=== PATIENT | male | born 1995 | race Caucasian/White ===

== ENCOUNTER 2019-01-12 16:13 | Inpatient (IN) | payer SELFPAY ==
[~2019-01-12 16:13] MED LIST: Dexamethasone 20 MG/5 ML VIAL ONE; Glycopyrrolate 0.2 MG/ML 5 ML SYRINGE ONE; Lidocaine 1% PF 5 ML VIAL ONE; Ondansetron PF 4 MG/2 ML Vial ONE; PROPOFOL 200 MG/20 ML VIAL ONE; Rocuronium Bromide 10 MG/ML (10ML VIAL) ONE; ePHEDrine 50 MG/ML VIAL ONE
[2019-01-12] MEDS ORDERED: Lidocaine 1% (PF) 30 ML VIAL ONE ×2 (16:30→16:41)
[2019-01-12] MEDS ORDERED: Adacel (T-DAP) 0.5 ML SYRINGE ONE (16:34)
--- NOTE | 2019-01-12 16:59 | RAD ---
EXAM: XR Hand Rt 3 View STANDARD PROVIDED CLINICAL HISTORY: Injury to right small finger. Patient cut pinky finger with a saw. COMPARISON: None FINDINGS: There is a fracture involving the distal aspect proximal phalanx right small finger with associated l aceration. Fracture is mildly comminuted and significantly angulated medially which is compatible with patient's recent injury. No additional osseous abnormalities is seen. IMPRESSION: Significant soft tissue defect/laceration involving the proximal aspect of the right small finger wit h angulated fracture involving the proximal phalanx of the right small finger.
[2019-01-12] MEDS ORDERED: Gentamicin Sulfate 300 MG in Sodium Chloride 0.9% 100 ML IVPB ONE ×2 (18:30→20:00)
[2019-01-12] MEDS ORDERED: Bacitracin Zinc Ointment 30 gm TUBE ONE (19:17)
[2019-01-12] MEDS ORDERED: Sodium Chloride 0.9% 30 ML ONE ×2 (19:17→19:43)
[2019-01-12] MEDS ORDERED: Bupivacaine PF 0.5% 30 ML VIAL ONE (19:17)
[2019-01-12] MEDS ORDERED: Fentanyl 100 MCG/2 ML VIAL ONE (20:10)
[2019-01-12] MEDS ORDERED: Midazolam HCl 2 mg/2 ml Vial ONE (22:56)
[2019-01-12] MEDS ORDERED: Milk Of Magnesia 30 ML UDCUP PO PRN (22:58)
[2019-01-12] MEDS ORDERED: HYDROcodone/Acetaminophen 5/325 mg Tablet PO PRN (22:58)
[2019-01-12] MEDS ORDERED: traMADol HCl 50 MG TAB PO PRN (22:58)
[2019-01-12] MEDS ORDERED: Acetaminophen 325 MG TAB PO PRN (22:58)
[2019-01-12] MEDS ORDERED: Morphine 4 MG/ML VIAL SLOW IVP PRN (22:58)
[2019-01-12] MEDS ORDERED: Bisacodyl 10 MG SUPP PR PRN (22:58)
[2019-01-12] MEDS ORDERED: Ondansetron PF 4 MG/2 ML Vial IV PRN (22:58)
[2019-01-12] MEDS ORDERED: Promethazine HCl 25 MG/ML VIAL IM PRN ×2 (22:58→23:11)
[2019-01-12] MEDS ORDERED: Communication Order-Pharmacy FS SCH (23:00)
[2019-01-12] MEDS ORDERED: Ketorolac Tromethamine 30 MG/ML VIAL IVP PRN (23:03)
[2019-01-12] MEDS ORDERED: Meperidine HCl/PF 25 MG/ML VIAL IM PRN (23:03)
[2019-01-12] MEDS ORDERED: PACU-Morphine 4MG/ML VIAL SLOW IVP PRN (23:11)
[2019-01-12] MEDS ORDERED: Ondansetron HCl/PF 4 MG/2 ML Vial IVP PRN (23:11)
[2019-01-12] MEDS ORDERED: HYDROmorphone 2 MG/ML VIAL SLOW IVP PRN (23:11)
[2019-01-12] MEDS ORDERED: Promethazine HCl 25 MG/ML VIAL SLOW IVP PRN (23:11)
[2019-01-12] MEDS ORDERED: Meperidine HCl/PF 25 MG/ML VIAL SLOW IVP PRN (23:11)
[2019-01-12] MEDS ORDERED: Morphine Sulfate 2 MG/ML SYRINGE SLOW IVP PRN (23:11)
[2019-01-13 01:58] VITALS: BMI 24.3
[2019-01-13] MEDS ORDERED: Vancomycin HCl 1 GM in Premix Bag 1 BAG IVPB SCH (05:30)
--- NOTE | 2019-01-13 07:41 | RAD ---
EXAM: XR Finger(s) Rt Min 2 View PROVIDED CLINICAL HISTORY: Injury to right small finger. COMPARISON: Radiographs of the right hand on 01/12/2019. FINDINGS/IMPRESSION: Single intraoperative PA view right small finger is significant for interpretation. 2 pins transfix t he previously noted fracture involving the distal portion of the proximal phalanx right small finger with improved alignment of fracture fragments. There is prominent subcutaneous soft tissue swe lling about the right small finger with evidence of soft tissue defect and laceration. Correlation with intraoperative findings is recommended.
[2019-01-13] MEDS ORDERED: TETANUS AND DIPHTHERIA TOX/PF 0.5 ML DISP.SYRIN IM SCH (09:00)
[2019-01-13] MEDS: Aspirin 81 mg Enteric Coated Tablet PO SCH ×2 (13:56→23:36)
[2019-01-13] MEDS: Vancomycin HCl 1 GM in Premix Bag 1 BAG IVPB SCH (23:37)
[2019-01-14 09:17] VITALS: BP 130/65; TEMP 97.5
[2019-01-14] MEDS: Vancomycin HCl 1 GM in Premix Bag 1 BAG IVPB SCH (10:01)
[2019-01-14] MEDS: Aspirin 81 mg Enteric Coated Tablet PO SCH (10:01)
--- NOTE | 2019-01-14 13:49 | OP ---
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 No previous injury. PREOPERATIVE DIAGNOSES: 1. Open proximal phalanx neck fracture, grade 2 open fracture, right small finger. 2. Extensor tendon laceration with wound. 3. Open proximal phalangeal joint dislocation. 4. Proximal phalanx bone loss. 5. Ulnar digital nerve and artery laceration. 6. Ulnar lateral band laceration. POSTOPERATIVE DIAGNOSES: 1. Open proximal phalanx neck fracture, grade 2 open fracture, right small finger. 2. Extensor tendon laceration with wound. 3. Open proximal phalangeal joint dislocation. 4. Proximal phalanx bone loss. 5. Ulnar digital nerve and artery laceration. 6. Ulnar lateral band laceration. PROCEDURES PERFORMED: At the right small finger; 1. Debridement of material associated with open fracture. 2. Debridement of wound. 3. Debridement of open proximal phalangeal joint. 4. Open reduction, proximal phalanx fracture with K-wires. 5. C-arm supervision. 6. Application of short-arm splint. 7. Extensor tendon zone 4 laceration repair. 8. Tenotomy, lateral band. 9. Microscopic ulnar digital nerve repair. SPECIMEN REMOVED: Multiple particles of soft tissue. ESTIMATED BLOOD LOSS: 50 mL. TOURNIQUET: 75 mL. FINDINGS: Ulnar proximal phalanx neck base with marked bony loss to include collaterals and the entire ulnar condyle volar and direct lateral base and marked bony loss and extensor and lateral band substance periarticular. INDICATIONS FOR PROCEDURE: Saw to the hand at work with open fracture grade 2 and marked instability of fracture with a twisting and possible open dislocation. DESCRIPTION OF PROCEDURE: After successful general endotracheal anesthesia, the limb was prepped and draped. We immediately gave the patient 12 mL of 0.5% Marcaine block, he underwent irrigation and debridement of the fracture because it was very unstable after prepping and draping and time-out. First, we extended the incision proximally on the dorsal side by 1.5 cm and distally over the joint because the joint appeared twisted and indeed there was a dislocation with marked rotation of the condyle where the portion of the fragment of the bone distal to the primary fracture line was only approximately 1 cm in length. It had no collateral ligaments on his ulnar side, so easily rotated the radial side down and it also shortened. We then expanded the dislocation, used a curette to debride the bone along with a small Crile to remove particles under loupe magnification because it was opened in a sawdust environment. We then worked copiously to inspect the joint because there was no collateral we could open it from the ulnar side. The condyles were still intact on the radial side and there was minimal collateral on the radial side attachment. After using the curette, rongeur, Crile, hemostats to debride the bone, De Baca blade as well as a [place] was used as well to debride the bone and the material associated with the open fracture. This was done down to including the bone and all the depth of the tendon which was visualized. The flexor tendon was intact. The radial neurovascular bundle was intact. We then finished irrigation with 5 L of normal saline Pulsavac pressure and the wound was now clean at the beginning of reduction. First, after we finished debriding the open joint, we placed the fracture in its best way as possible because of so much bone loss in the ulnar aspect, leaving about 5 degrees apex radial angulation, but two K-wires held it in appropriate length position for later repair using bone graft to fill in the defect and possible plating. Once this was done, we inspected the tendons and saw there was no further contamination here so we closed the 70% total laceration just proximal to the PIP joint, extensor tendon, cut the wires below the level of the tendon and then noticed that the lateral band was restored. Performed tenotomy of this and could not reach, and finished the repair of the extensor tendon in zone 4 with interrupted 3-0 nylon simple [id number] interrupted pattern. Now the extensor tendon in zone 4 repaired and tenotomy of lateral band, we turned the finger to the dorsal side down and brought the microscope in the field. We performed dissection on palmar side in the area of the ulnar digital nerve and the neurovascular bundle. We could see from this side that the radial digital nerve bundle was intact. There were few particles which were debrided but otherwise the wound is now clean. We then noticed that the ulnar digital nerve ends were found and were opened up by 1.5 mm, so performed approximately 1 mm resection of both the ends. A 9-0 Nurolon was then used to place 3 sutures in the nerves, giving it absolutely perfect . Now, we deflated the tourniquet, cut then wires, we had finished the microscopic digital nerve repair using the 9-0 Nurolon and did not repair the artery. We still had excellent circulation. We could close most of the wound with interrupted 4-0 nylon in a simple pattern. We loosely approximated the worst part of the laceration and then placed bacitracin, Adaptic 4 x 4, multiple one Kerlix. We then placed him in a dorsal block splint out to the level of the nail bed of the small finger. Final radiographs showed reduced joint and reduced fracture with some angulation and this remained so until we placed new bone graft and probably fixation with a plate. The patient left the operating room without evidence of anesthetic or operative complication. Job ID: [id number]
== END 2019-01-14 13:30 | disposition home or self-care (01) | DRG 513 ==
LOC: ERS 16:13 → SDC/OP 18:10 → ONC 01-13 00:08
PROVIDERS: ADMIT Orthopaedic Surgery Hand Surgery; ATTEND Orthopaedic Surgery Hand Surgery
PROC: 0PST04Z Reposition Right Finger Phalanx with Internal Fixation Device, Open Approach (ICD-10-PCS; principal; 2019-01-12)
PROC: 0LQ70ZZ Repair Right Hand Tendon, Open Approach (ICD-10-PCS; 2019-01-12)
PROC: 01Q40ZZ Repair Ulnar Nerve, Open Approach (ICD-10-PCS; 2019-01-12)
DX: S62.616B Displaced fracture of proximal phalanx of right little finger, initial encounter for open fracture (principal); S65.011A Laceration of ulnar artery at wrist and hand level of right arm, initial encounter; W27.0XXA Contact with workbench tool, initial encounter; Y93.89 Activity, other specified; S64.496A Injury of digital nerve of right little finger, initial encounter
CPT/HCPCS: 76000; 90715; J0690; J1100; J1580; J2001; J2250; J2405; J2704; J3010; J3370; J3490; S0020

== ENCOUNTER 2019-03-11 15:07 | Outpatient (CLI) | payer OTHER, SELFPAY ==
[2019-03-11 15:38] LABS: #Basophils 0.1 thou/uL (0.0-0.2); #Eosinphils 0.3 thou/uL (0.0-0.7); #Lymphocytes 2.4 thou/uL (1.20-3.40); #Monocytes 0.6 thou/uL (0.11-0.59); %Basophils 0.7 % (0.0-1.0); %Lymphocytes 28.6 % (21.0-51.0); %Monocytes 7.2 % (0.0-10.0); %Neutrophils 60.6 % (42.0-75.0); Hemoglobin 14.9 g/dL (14.0-18.0); Mean Corpuscular HGB CONC 34.9 g/dL (32.0-36.0); Mean Corpuscular Volume 88.9 fL (78.0-98.0); Mean Platelet Volume 8.5 fL (7.4-10.4); Platelet Count 146 thou/uL (130-400); RBC Distribution Width 11.6 % (11.5-14.5); Red Blood Cell (RBC) Count 4.79 mill/uL (4.70-6.10); White Blood Cell (WBC) Count 8.3 thou/uL (4.8-10.8)
== END 2019-03-11 15:08 | disposition home or self-care (01) ==
LOC: LABBT 15:07
PROVIDERS: ATTEND Orthopaedic Surgery Hand Surgery
DX: Z01.812 Encounter for preprocedural laboratory examination (principal); S62.616B Displaced fracture of proximal phalanx of right little finger, initial encounter for open fracture
CPT/HCPCS: 85025

== ENCOUNTER 2019-03-15 12:56 | Inpatient (IN) | payer OTHER ==
[~2019-03-15 12:56] MED LIST changes: -Glycopyrrolate 0.2 MG/ML 5 ML SYRINGE ONE; +Heparin 1,000 UNITS/ML VIAL ONE; -Rocuronium Bromide 10 MG/ML (10ML VIAL) ONE; -ePHEDrine 50 MG/ML VIAL ONE
--- NOTE | 2019-03-15 15:51 | RAD ---
RADIOGRAPH RIGHT 5TH DIGIT 2 VIEWS: DATE: 03/15/2019. HISTORY: A 24-year-old male for followup of traumatic injury to right 5th digit. COMPARISON: 01/12/2019 intraoperative image in the OR. FINDINGS: Previously demonstrated two K-wires have been removed. Again demonstrated is the comminuted fracture of the head of the 5th proximal phalanx, with intraarticular involvement and displacement. There is ulnar and dorsal angulation, and approximately 10-20% bone width dorsal displacement, of the main di stal fracture fragment. There is a comminuted fracture fragment within the ulnar aspect of the PIP j oint space. There is chronic periosteal elevation along the diaphysis of the proximal phalanx, but t here is no bridging callus involving the fracture itself. IMPRESSION: 1. Late subacute comminuted, displaced, intraarticular fracture at head of right 5th proximal phalan x. No union or callus at the fracture site. 2. Interval removal of Glenna wires. POS: CET
[2019-03-15] MEDS ORDERED: Bacitracin Zinc Ointment 30 gm TUBE ONE (16:10)
[2019-03-15] MEDS ORDERED: Bupivacaine PF 0.5% 30 ML VIAL ONE (16:10)
[2019-03-15] MEDS ORDERED: Sodium Chloride 0.9% 10 ML ONE ×2 (16:14→19:00)
[2019-03-15] MEDS ORDERED: Midazolam HCl 2 mg/2 ml Vial ONE (18:06)
[2019-03-15] MEDS ORDERED: Fentanyl 100 MCG/2 ML VIAL ONE ×2 (18:06→20:43)
[2019-03-15] MEDS ORDERED: Tobramycin Sulfate 1.2 GM VIAL ONE (19:00)
[2019-03-15] MEDS ORDERED: Sodium Chloride 0.9% 20 ML ONE (19:09)
[2019-03-15] MEDS ORDERED: Promethazine HCl 25 MG/ML VIAL IM PRN (20:21)
[2019-03-15] MEDS ORDERED: Promethazine HCl 25 MG/ML VIAL SLOW IVP PRN (20:21)
[2019-03-15] MEDS ORDERED: Ondansetron HCl/PF 4 MG/2 ML Vial IVP PRN (20:21)
[2019-03-15] MEDS ORDERED: Acetaminophen 325 MG TAB PO PRN (20:43)
[2019-03-15] MEDS ORDERED: traMADol HCl 50 MG TAB PO PRN (20:43)
[2019-03-15] MEDS ORDERED: Morphine 4 MG/ML VIAL SLOW IVP PRN (20:43)
[2019-03-15] MEDS ORDERED: Communication Order-Pharmacy FS SCH (20:45)
[2019-03-15] MEDS ORDERED: TETANUS AND DIPHTHERIA TOX/PF 0.5 ML DISP.SYRIN IM SCH (20:45)
[2019-03-15] MEDS ORDERED: Ketorolac Tromethamine 30 MG/ML VIAL ONE (20:47)
--- NOTE | 2019-03-15 20:56 | RAD ---
2 VIEWS RIGHT SMALL FINGER: Date: 03/15/19 HISTORY: Open reduction and internal fixation right small finger after injury with a trim saw. FINDINGS/IMPRESSION: Multiple limited intraoperative fluoroscopic views of the small finger were submitted for interpretat ion. There is better alignment of the proximal phalanx. There is questionable increase in bone in thi s location and a bone graft may have been placed. Surrounding soft tissue swelling is seen. POS: C
[2019-03-15] MEDS ORDERED: Vancomycin HCl 1.5 GM in Sodium Chloride 0.9% 250 ML 300 ML IVPB SCH (21:15)
[2019-03-15 21:48] VITALS: BMI 24.3
[2019-03-15 22:55] LABS: Anion Gap 11 mmol/L (10-20); BUN (Urea Nitrogen) 10 mg/dL (8.9-20.6); Calc. Creatinine Clearance 133 mL/min (70-130); Calcium 9.9 mg/dL (7.8-10.44); Carbon Dioxide 29 mmol/L (22-29); Chloride 103 mmol/L (98-107); Estimated GFR-MDRD 85; Glucose 124 mg/dL (70-105); Potassium 4.3 mmol/L (3.5-5.1); Sodium 139 mmol/L (136-145)
[2019-03-15] MEDS: Vancomycin HCl 1.5 GM in Sodium Chloride 0.9% 250 ML 300 ML IVPB SCH (23:51)
[2019-03-15] MEDS: Aspirin 81 mg Enteric Coated Tablet PO SCH (23:51)
[2019-03-15] MEDS ORDERED: Ketorolac Tromethamine 30 MG/ML VIAL IVP SCH ×2 (23:59)
[2019-03-16 05:39] LABS: #Lymphocytes 0.9 thou/uL (1.20-3.40); #Monocytes 0.2 thou/uL (0.11-0.59); #Neutrophils 9.6 thou/uL (1.40-6.50); %Basophils 0.1 % (0.0-1.0); %Eosinophils 0.1 % (0.0-10.0); %Lymphocytes 8.5 % (21.0-51.0); %Monocytes 2.1 % (0.0-10.0); %Neutrophils 89.2 % (42.0-75.0); Hemoglobin 13.9 g/dL (14.0-18.0); Mean Corpuscular Hemoglobin 31.4 pg (27.0-31.0); Mean Corpuscular Volume 89.6 fL (78.0-98.0); Mean Platelet Volume 8.6 fL (7.4-10.4); Platelet Count 137 thou/uL (130-400); RBC Distribution Width 11.1 % (11.5-14.5); Red Blood Cell (RBC) Count 4.45 mill/uL (4.70-6.10); White Blood Cell (WBC) Count 10.8 thou/uL (4.8-10.8)
[2019-03-16] MEDS: Ketorolac Tromethamine 30 MG/ML VIAL IVP SCH ×3 (06:18→17:50)
[2019-03-16] MEDS: Aspirin 81 mg Enteric Coated Tablet PO SCH ×2 (08:47→19:58)
[2019-03-16] MEDS: Vancomycin HCl 1.5 GM in Sodium Chloride 0.9% 250 ML 300 ML IVPB SCH (11:32)
[2019-03-17] MEDS: Vancomycin HCl 1.5 GM in Sodium Chloride 0.9% 250 ML 300 ML IVPB SCH ×2 (00:07→11:51)
[2019-03-17] MEDS: Ketorolac Tromethamine 30 MG/ML VIAL IVP SCH ×4 (00:07→17:57)
[2019-03-17] MEDS: Aspirin 81 mg Enteric Coated Tablet PO SCH ×2 (08:06→21:42)
[2019-03-17 11:25] LABS: Vancomycin, Trough 9.1 ug/mL
--- NOTE | 2019-03-17 15:27 | SPC ---
PICC placement Ultrasound-guided venous access: (Peripherally inserted central catheter) DATE: 03/17/2019 HISTORY: 24-year-old male with infected fifth digit of right hand requiring long-term IV antibiotics. TECHNIQUE: Catheter caliber: 5 Palau[place] Catheter trim length:44 cm Catheter lumen number:single Catheter tip location:Superior vena cava/right atrial junction Vein accessed:left basilic Signed, informed consent was obtained. A tourniquet was applied at the proximal aspect of the arm. Th e arm was prepped and draped in the usual sterile fashion. A 25-gauge needle was used to applied buffered lidocaine superficially. The vein was punctured with a 21-gauge micropuncture needle under u ltrasound guidance. A 0.018 inch guidewire was advanced through the micropuncture needle and into the vein. Under fluoroscopic guidance, the guidewire was advanced to the superior vena cava. The PICC was flushed and trimmed to the appropriate length. The micropuncture needle was exchanged over the guidewire for a 5 Palauan peel-away dilator sheath. The dilator was exchanged over the guidewire for t he PICC, which was then further advanced under fluoroscopy. The sheath and guidewire were removed. The PICC was flushed again and secured in place at the arm after adjustment of tip position. The dina ent tolerated the procedure well. There was no complication. IMPRESSION: Successful placement of PICC (peripherally inserted central catheter).
[2019-03-17] MEDS ORDERED: Fentanyl 100 MCG/2 ML VIAL ONE (21:24)
[2019-03-17] MEDS ORDERED: Bacitracin Zinc Ointment 30 gm TUBE ONE (21:49)
[2019-03-17] MEDS ORDERED: Bupivacaine PF 0.5% 30 ML VIAL ONE (21:49)
[2019-03-17] MEDS ORDERED: Thrombin 5000 UNITS/5 ML VIAL ONE (21:49)
--- NOTE | 2019-03-17 23:22 | RAD ---
Right Little finger intraoperative fluoroscopy 2 views HISTORY: Fracture. FINDINGS: Intraoperative fluoroscopy was provided for manipulation as performed by Dr. Ovalles. Spot fluoroscopic images show the comminuted, slightly impacted fracture of the proximal phalanx. Fluoroscopy time 3.9 seconds.
[2019-03-18] MEDS: Vancomycin HCl 1.5 GM in Sodium Chloride 0.9% 250 ML 300 ML IVPB SCH ×2 (00:40→11:54)
[2019-03-18] MEDS: Ketorolac Tromethamine 30 MG/ML VIAL IVP SCH ×5 (00:40→23:15)
--- NOTE | 2019-03-18 05:37 | OP ---
DATE OF PROCEDURE: 03/17/2019 PREOPERATIVE DIAGNOSIS: Right small finger wound with prior infection. FINDINGS: Today, no gross infection in bone, joint, skin, or muscle. PROCEDURES PERFORMED: 1. Debridement of bone, right small finger middle phalanx distal third including shaft. 2. C-arm supervision. 3. Antibiotic bead exchange with tobramycin antibiotics inside. INDICATION: The patient looked stable with medications now, 16 hours after the previous debridement. 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 In order to get his wound in a better position, we thought antibiotic beads of a new type should be applied before we close the wounds over a bead spacer intra-articular and let him go home on IV antibiotics. DESCRIPTION OF PROCEDURE: After successful general LMA technique, the limb was prepped and draped. Then, he had a 10 mL of 0.5% Marcaine block and then, removed the sutures, dissected down to the extensor mechanism, opened the two sutures over the previous antibiotic spacer. We then mixed the tobramycin with the antibiotic on the back table, and as they got hard, we did fashion it to the shape of the previous antibiotic bead spacer, which was adequate on frontal and sagittal planes. We placed it and it was adequate. Before this, we debrided the canal of the bone with a curette and we did not find a gross infection. We irrigated the wound and the bone with 3000 mL of normal saline and Pulsavac pressure with antibiotics inside. The patient then had the antibiotic beads formed, antibiotic spacer formed. The cement was placed 3 mm in the canal and then in the joint subarticular below the previously infected chondral surface. The patient then left the operating room with wound closed with 4-0 nylon, the extensor mechanism loosely approximated over the antibiotic bead spacer and had no operative or perioperative complications. Job ID: [id number]
[2019-03-18 06:44] LABS: #Lymphocytes 0.9 thou/uL (1.20-3.40); #Monocytes 0.2 thou/uL (0.11-0.59); #Neutrophils 8.4 thou/uL (1.40-6.50); %Basophils 0.1 % (0.0-1.0); %Eosinophils 0.2 % (0.0-10.0); %Lymphocytes 9.7 % (21.0-51.0); %Monocytes 2.5 % (0.0-10.0); %Neutrophils 87.4 % (42.0-75.0); Hemoglobin 13.7 g/dL (14.0-18.0); Mean Corpuscular Hemoglobin 31.4 pg (27.0-31.0); Mean Corpuscular Volume 89.7 fL (78.0-98.0); Mean Platelet Volume 8.4 fL (7.4-10.4); Platelet Count 131 thou/uL (130-400); RBC Distribution Width 11.3 % (11.5-14.5); Red Blood Cell (RBC) Count 4.36 mill/uL (4.70-6.10); White Blood Cell (WBC) Count 9.6 thou/uL (4.8-10.8)
[2019-03-18] MEDS: Aspirin 81 mg Enteric Coated Tablet PO SCH ×2 (08:35→19:51)
[2019-03-18 11:30] LABS: Vancomycin, Trough 9.1 ug/mL
[2019-03-18] MEDS ORDERED: Vancomycin HCl 1.75 GM in Sodium Chloride 0.9% 500 ML IVPB SCH (12:00)
--- NOTE | 2019-03-18 23:01 | CON ---
DATE OF CONSULTATION: 03/18/2019 REASON FOR CONSULTATION: Osteomyelitis of the right fifth digit. HISTORY OF PRESENT ILLNESS: A 24-year-old, status post sawmill injury to the right 5th finger who had almost amputation of the finger. The initial imaging in December demonstrated fracture in the distal portion of the proximal phalanx of right small digit. The fragments were aligned and fixed by Dr. Ovalles in December and now he was admitted because of inflammatory changes. Dr. Ovalles carried out debridement of bone of the right small finger and antibiotic bead exchange with tobramycin antibiotics placed inside. The patient had a PICC line inserted. Denies headaches, visual symptoms, sore throat, odynophagia, or dysphagia. No cough or productive chest pain. No abdominal pain or diarrhea. No genitourinary symptoms. No other joint symptoms or neurological symptoms. PAST MEDICAL HISTORY: Saw mill injury to the right hand, but no other medical history. SOCIAL HISTORY: Drinks occasionally. Smokes daily. No other drug use. Lives with mother, I believe in [place]. ALLERGIES: NONE. FAMILY HISTORY: Noncontributory. CURRENT MEDICATIONS: Include: 1. Aspirin. 2. Toradol. 3. Demerol. 4. Morphine. 5. Ultram. 6. Vancomycin. PHYSICAL EXAMINATION: VITAL SIGNS: Temperature has been normal. Other vital signs are normal. SKIN: Shows the 5th digit surgical site with bulky dressing, which was not removed. We do not have any photos to review. The patient has a PICC line in left upper extremity. No Woodard catheter, no lymphadenopathy. HEENT: Normal. NECK: Supple. LUNGS: Symmetric. Clear breath sounds. CARDIAC: S1, S2 regular rate. No S3 or S4. ABDOMEN: Soft, not distended or tender. No ascites. No bladder distention. EXTREMITIES: No other joint inflammatory process. NEUROLOGIC: Nonfocal. LABORATORY DATA: White cell count is 10.8 and 9.6, hemoglobin 13.9, platelets 137, 89% neutrophils. Glucose 124, sodium 139. Toxicology with vanc at 9.9. Microbiology with MRSA, vancomycin PINO was 1 and resistant to clindamycin. ASSESSMENT: Osteomyelitis, post injury to the right 5th digit. The patient had incision and drainage and I think he is going to have a bone graft down the road. For now, we will continue daptomycin in the outpatient setting, probably downstairs. We will have clinical case manager assistance, monitor CBC, CRP, CPK, and chemistry on a weekly basis. Followup with clinical response and radiological response and then determine the extension of treatment as needed, probably switch him to oral minocycline plus rifampin at the end of therapy. Job ID: [id number]
[2019-03-18] MEDS: Vancomycin HCl 1.75 GM in Sodium Chloride 0.9% 500 ML IVPB SCH (23:16)
[2019-03-19] MEDS: Ketorolac Tromethamine 30 MG/ML VIAL IVP SCH ×3 (05:34→17:42)
[2019-03-19] MEDS: Aspirin 81 mg Enteric Coated Tablet PO SCH (08:07)
[2019-03-19 08:13] VITALS: BP 155/85; TEMP 97.9
[2019-03-19] MEDS: Vancomycin HCl 1.75 GM in Sodium Chloride 0.9% 500 ML IVPB SCH (11:44)
[2019-03-19 11:55] LABS: Vancomycin, Trough 10.5 ug/mL
== END 2019-03-19 18:08 | disposition home or self-care (01) | DRG 517 ==
LOC: SDC 12:56 → T4-B 21:03
PROVIDERS: ADMIT Orthopaedic Surgery Hand Surgery; ATTEND Orthopaedic Surgery Hand Surgery
PROC: 0PBT0ZZ Excision of Right Finger Phalanx, Open Approach (ICD-10-PCS; principal; 2019-03-17)
PROC: 02HV33Z Insertion of Infusion Device into Superior Vena Cava, Percutaneous Approach (ICD-10-PCS; 2019-03-17)
PROC: B548ZZA Ultrasonography of Superior Vena Cava, Guidance (ICD-10-PCS; 2019-03-17)
PROC: 3E0V329 Introduction of Other Anti-infective into Bones, Percutaneous Approach (ICD-10-PCS; 2019-03-17)
DX: M86.8X4 Other osteomyelitis, hand (principal); F17.200 Nicotine dependence, unspecified, uncomplicated
CPT/HCPCS: 36415; 36569; 76000; 80048; 80202; 85025; 85652; 87070; 87077; 87186; 87205; 88304; 88305; 88311; C1713; C1751; J0690; J1100; J1644; J1885; J2001; J2250; J2405; J2704; J3010; J3260; J3370; J3490; J7050; S0020

== ENCOUNTER 2019-12-07 09:18 | Observation (INO) | payer OTHER, SELFPAY ==
[2019-12-06 12:57] VITALS: BMI 26.9
[2019-12-07] MEDS ORDERED: PROPOFOL 200 MG/20 ML VIAL ONE (10:29)
[2019-12-07] MEDS ORDERED: Dexamethasone 20 MG/5 ML VIAL ONE (10:29)
[2019-12-07] MEDS ORDERED: Ketorolac Tromethamine 30 MG/ML VIAL ONE (10:29)
[2019-12-07] MEDS ORDERED: Ondansetron PF 4 MG/2 ML Vial ONE (10:29)
[2019-12-07] MEDS ORDERED: Lidocaine 1% PF 5 ML VIAL ONE (10:29)
--- NOTE | 2019-12-07 11:58 | RAD ---
Exam:Right hand fifth digit 3 view HISTORY: Incompletely healed fracture COMPARISON: 03/17/2019 FINDINGS: Redemonstration of chronic changes involving the distal phalanx of the fifth digit. Associa malcolm soft tissue swelling. IMPRESSION: Nonhealed fracture involving the distal aspect of the proximal phalanx of the fifth digit . Associated fragmentation and soft tissue swelling/deformity.
[2019-12-07] MEDS ORDERED: Bacitracin Zinc Ointment 30 gm TUBE ONE (12:27)
[2019-12-07] MEDS ORDERED: Bupivacaine PF 0.5% 30 ML VIAL ONE ×2 (12:27→17:23)
[2019-12-07] MEDS ORDERED: Midazolam HCl 2 mg/2 ml Vial ONE (12:35)
[2019-12-07] MEDS ORDERED: Fentanyl 100 MCG/2 ML VIAL ONE (12:35)
--- NOTE | 2019-12-07 17:15 | RAD ---
3 fluoroscopic spot image of the right small finger Indication history traumatic arthritis of the right small digit COMPARISON: Prior exam dated 12/07/2019 FINDINGS: Since comparison examination there is been interval removal of the polymethylmethacrylate s pacer involving the small digit proximal phalanx and PIP joint. There is been interval fusion of the PIP joint with associated plate and screw construct.. The small digit is held in near-anatomic al ignment. Total fluoroscopic time was 59.1 seconds. Total exposure is 1.31 mGy. IMPRESSION: Interval arthrodesis of the small digit PIP joint. Transcribed Date/Time: 12/07/2019 5:17 PM
[2019-12-07] MEDS ORDERED: Thrombin 5000 UNITS/5 ML VIAL ONE (17:32)
[2019-12-07] MEDS ORDERED: Promethazine HCl 25 MG/ML VIAL SLOW IVP PRN (18:06)
[2019-12-07] MEDS ORDERED: Morphine Sulfate 2 MG/ML SYRINGE SLOW IVP PRN (18:06)
[2019-12-07] MEDS ORDERED: Promethazine HCl 25 MG/ML VIAL IM PRN (18:06)
[2019-12-07] MEDS ORDERED: Ondansetron HCl/PF 4 MG/2 ML Vial IVP PRN (18:06)
[2019-12-07] MEDS ORDERED: PACU-Morphine 4MG/ML VIAL SLOW IVP PRN (18:06)
[2019-12-07] MEDS ORDERED: HYDROmorphone 2 MG/ML VIAL SLOW IVP PRN (18:06)
[2019-12-07] MEDS ORDERED: Meperidine HCl/PF 25 MG/ML VIAL SLOW IVP PRN (18:06)
[2019-12-07] MEDS ORDERED: Morphine 4 MG/ML VIAL SLOW IVP PRN (18:13)
[2019-12-07] MEDS ORDERED: Fentanyl 100 MCG/2 ML VIAL SLOW IVP PRN (18:13)
[2019-12-07] MEDS ORDERED: Bisacodyl 10 MG SUPP PR PRN (18:13)
[2019-12-07] MEDS ORDERED: Acetaminophen 325 MG TAB PO PRN (18:13)
[2019-12-07] MEDS ORDERED: Ondansetron PF 4 MG/2 ML Vial SLOW IVP PRN (18:13)
[2019-12-07] MEDS ORDERED: Milk Of Magnesia 30 ML UDCUP PO PRN (18:13)
[2019-12-07] MEDS ORDERED: Meperidine HCl/PF 25 MG/ML VIAL IM PRN (18:15)
[2019-12-07] MEDS: traMADol HCl 50 MG TAB PO PRN (20:23)
[2019-12-07] MEDS: Aspirin 81 mg Enteric Coated Tablet PO SCH (20:24)
[2019-12-07] MEDS: Sodium Chloride 0.9% 100 ML IV SCH (20:48)
[2019-12-07] MEDS ORDERED: TETANUS AND DIPHTHERIA TOX/PF 0.5 ML DISP.SYRIN IM SCH (21:00)
[2019-12-07] MEDS: Vancomycin 1.5 GRAM/300 ML BAG 1.5 GM in Premix Bag 1 BAG IVPB SCH (21:42)
[2019-12-07] MEDS: Sodium Chloride 0.9% 1,000 ML IV SCH (21:42)
[2019-12-08] MEDS ORDERED: Vancomycin 1 GM in Premix Bag 1 BAG IVPB SCH (01:00)
[2019-12-08] MEDS: HYDROcodone/Acetaminophen 5/325 mg Tablet PO PRN ×3 (01:24→14:24)
[2019-12-08] MEDS: traMADol HCl 50 MG TAB PO PRN (03:49)
[2019-12-08] MEDS: Vancomycin 1.5 GRAM/300 ML BAG 1.5 GM in Premix Bag 1 BAG IVPB SCH ×2 (05:09→13:43)
[2019-12-08] MEDS: Sodium Chloride 0.9% 1,000 ML IV SCH (06:01)
[2019-12-08] MEDS: Aspirin 81 mg Enteric Coated Tablet PO SCH (07:54)
[2019-12-08 12:34] LABS: Vancomycin, Trough 13.3 ug/mL
[2019-12-08 16:01] VITALS: BP 115/75; TEMP 99
--- NOTE | 2019-12-08 16:05 | OP ---
DATE OF PROCEDURE: 12/07/2019 PREOPERATIVE DIAGNOSES: 1. Nonunion with bone defect, neck of the proximal phalanx fracture. 2. Posttraumatic osteoarthritis with chondral loss, proximal interphalangeal joint, right small finger. POSTOPERATIVE DIAGNOSES: 1. Nonunion with bone defect, neck of the proximal phalanx fracture. 2. Posttraumatic osteoarthritis with chondral loss, proximal interphalangeal joint, right small finger. OTHER FINDINGS: 1. Tendon adhesions, marked extensor tendon skin and extensor tendon bone in the region of the nonunion. 2. Antibiotic beads inside still in place, need to be removed. PROCEDURES PERFORMED: 1. Removal of antibiotic beads implant, intra-articular proximal phalanx. 2. C-arm supervision. 3. Tenolysis of extensor tendon, proximal phalanx, interphalangeal joint and proximal phalangeal joint. 4. Debridement of material associated with open fracture. 5. Open treatment with iliac crest bone graft harvested almost a 2 cm segment, approximately 1 cm deep and 15 mm wide tricortical, so we did open treatment with this iliac bone graft described above after harvesting with internal fixation using [employer]ynthes 1.5 Modular handset plate and screws. SPECIMENS: Yes, white blood cell counts sent initially, which was less than 0 per high-power field. Final bone loss 1 cm long and 4 mm wide. INDICATIONS FOR PROCEDURE: The patient again had an open injury at work, led to internal fixation and debridement for grade 2 fracture and then went on to have infection, which was osteomyelitis. He required debridement of the bone. Once this was done, the chondral surface was so thin and it did not survive, but fragmented. We had stabilized this area after multiple debridements and he had IV antibiotics. DESCRIPTION OF PROCEDURE: After successful general endotracheal anesthesia, his limb was prepped and draped. The patient had time-out done appropriately. We gave him 15 mL of 0.5% Marcaine metacarpophalangeal block level and 10 at the level of the iliac crest wing. We then carried the incision through skin and subcutaneous tissue, and made a midline incision in the extensor mechanism, slightly more ulnar than radial between P3 and P2. Here, we then found there was extensive adhesion beginning at the PIP joint distally to the proximal to the MP joint. We released the extensor mechanism underlying adhesions, removed the adhesive tissue between tendon and subcutaneous skin and tendon and bone. We then first debrided the canal using nonunion technique, such as petaling and use of a kendall to achieve a bleeding surface. We think we did resect 3 mm of bone. For this reason, the patient had a specimen sent to the lab from the debrided bone and the joint capsule was freed after removing the epicondyle. This came back for the area in question. No white blood cell count per high-powered field while the Gram stain done slightly later showed a small amount. We had already removed the antibiotic bead, which was a spacer placed inside the neck of the proximal phalanx fracture. It did not show fragmentation, but we resected down to bleeding bone edge as we did resection, deflated the tourniquet, and we saw that the bone where the bone interface showed excellent bleeding. We then proceeded to do the same techniques on the proximal phalanx including removing all residual chondral surface in the base of the proximal phalanx, curetted it, and then while awaiting for the specimen come back, we then attempted to use the arthroplasty from 10sec, but it was too unstable in frontal sagittal plane, so abandoned this. We completely prepared the bone; however, bleeding bone on both ends and it was an irregular shaped proximal phalanx surface in the frontal sagittal plane, so we had to craft the bone graft for this. We then harvested from the right iliac crest bone using an anterior approach, 2.5 cm long, beginning 1 cm proximal to the anterior superior iliac spine to avoid violating this area of the pelvic wing. We took a tricortical wedge after releasing the fascia, marked the fascia for later closure. Once we took the wedge, we placed thrombin-soaked Gelfoam here and turned attention back to the fracture site. We then fashioned a piece that was the exact length of appropriate soft tissue tension with the distal and flex 45 degrees. We had to make a reverse of the L-shaped neck of the proximal phalanx defect, where we had curettaged out and cored out both intramedullary space, we put cancellous bone in here after we realized it was bleeding bone, and we had reinflated the tourniquet. We then made it fit, first aligned it for rotation length and avoid angulation, we provisionally fixed it with K-wires and then used a long plate, 9 holes with 3 proximal to the bone graft, 2 over the bone graft, and 2 and 4 distal with 1 exactly over the area where we had cut the bone graft and the base of the middle phalanx to approximate a coapted 45 degrees angle. We then placed all screws in a standard drill, measured the screw technique using the 1.5 screw set from [employer]. We had excellent rotation, excellent length, and excellent tissue tension. Small locked cancellous bone to fill in some of the areas where it was not exactly compressed, but there was no defect seen radiographically after bone graft capsules were placed. We released the tourniquet. We obtained hemostasis. We finished the extensor tenolysis. We then started using a Ralls blade including the entire proximal phalanx and the base of the middle phalanx. We approximated the extensor mechanism after obtained hemostasis using a running 4-0 Prolene. This was done on the proximal phalanx and middle phalanx. We closed the skin, obtained hemostasis with interrupted 4-0 nylon in simple pattern. We had thrombin Gelfoam small amount placed in the defect and small amount remained. We closed the fascia at the pelvic incision with a running 1-0 Vicryl on a CT1 needle, placed a drain before we had closed, closed subcutaneous tissue with a running 3-0 Monocryl and the epidermis with shamika. Bulky dressing was applied with a splint, holding the small finger when radiograph showed 45 degrees flexion of PIP, DIP at 10 degree flexion, and MP joint at 90. All digits were pink with 1 second capillary refill. The drain was in excellent suction. After applying the short-arm splint to the hand, then we placed a Tegaderm over bacitracin over Adaptic with ABD and the patient left the operating room without evidence of anesthetic or operative complication. Job ID: [id number]
== END 2019-12-08 17:25 | disposition home or self-care (01) ==
LOC: SDC 09:18 → SURG A 18:57
PROVIDERS: ADMIT Orthopaedic Surgery Hand Surgery; ATTEND Orthopaedic Surgery Hand Surgery
PROC: 0LN70ZZ Release Right Hand Tendon, Open Approach (ICD-10-PCS; principal; 2019-12-07)
PROC: 0PST04Z Reposition Right Finger Phalanx with Internal Fixation Device, Open Approach (ICD-10-PCS; 2019-12-07)
PROC: 0PU Upper Bones, Supplement (ICD-10-PCS; 2019-12-07)
PROC: 0QB20ZZ Excision of Right Pelvic Bone, Open Approach (ICD-10-PCS; 2019-12-07)
DX: S62.616A Displaced fracture of proximal phalanx of right little finger, initial encounter for closed fracture (principal); M19.141 Post-traumatic osteoarthritis, right hand; W31.2XXA Contact with powered woodworking and forming machines, initial encounter
CPT/HCPCS: 36415; 76000; 80202; 87070; 87205; 88305; 88331; 96365; 96366; C1713; G0378; J0690; J1100; J1885; J2001; J2250; J2405; J2704; J3010; J3490; S0020